=== PATIENT | male | born 1990 | race Caucasian/White ===

== ENCOUNTER 2023-10-16 14:54 | Outpatient (CLI) | payer OTHER, SELFPAY ==
--- NOTE | ~2023-10-16 | MR_ITS ---
EXAMINATION: MR brain/brain stem wo con DATE: 10/16/2023 16:01 INDICATION: Epilepsy. TECHNIQUE: Magnetic resonance imaging (MRI) of the brain and brainstem was performed without intraven ous contrast. COMPARISON: None. FINDINGS: There is no intracranial hemorrhage, acute infarction, or abnormal intracranial mass lesion . The hippocampi normal and symmetric. The ventricles are normal in size. The paranasal sinuses are c lear. The orbits are normal. There is mild mucosal thickening in the paranasal sinuses. There are tra ce mastoid effusions. IMPRESSION: 1. Normal brain. Reviewed, dictated and finalized at location A. IMPRESSION: 1. Normal brain.
== END 2023-10-16 14:55 | disposition home or self-care (01) ==
LOC: ANHIMG 14:59
PROVIDERS: Visit Provider Student in an Organized Health Care Education/Training Program
DX: G40.909 Epilepsy, unspecified, not intractable, without status epilepticus (principal)
CPT/HCPCS: 70551